=== PATIENT | female | born 1985 | race Caucasian/White ===

== ENCOUNTER 2016-06-03 08:00 | Inpatient (IN) | payer OTHER ==
[~2016-06-03] VITALS: Ht 162.6 cm; Wt 81.6 kg
[~2016-06-03 08:00] MED LIST: OXYC1SOL5 PO; Z.0.NO CURRENT MEDS
[2016-08-04] VITALS (8 sets, daily range): BP systolic 90–122; BP diastolic 51–67; PULSE 67–85; RESP 17–18; TEMP 97.8–98.7; O2SAT 97
[2016-08-04 06:28] LABS: AUTOMATED NEUTROPHIL # 7.1 TH/MM3 (1.8-7.7); BASOPHIL % 0.4 % (0.0-2.0); EOSINOPHIL # 0.2 TH/MM3 (0-0.4); EOSINOPHIL % 1.7 % (0.0-4.0); HEMATOCRIT 35.5 % (35.0-46.0); HEMO FLAGS DIFF FINAL; LYMPH % 22.6 % (9.0-44.0); LYMPHOCYTE # 2.3 TH/MM3 (1.0-4.8); MEAN CELL VOLUME 85.6 FL (80.0-100.0); MEAN CORPUSCULAR HEMOGLOBIN 28.5 PG (27.0-34.0); MEAN CORPUSCULAR HGB CONC 33.3 % (32.0-36.0); MONO % 7.5 % (0.0-8.0); NEUT % 67.8 % (16.0-70.0); PLATELET COUNT 200 TH/MM3 (150-450); RED BLOOD COUNT 4.15 MIL/MM3 (4.00-5.30); RED CELL DISTRIBUTION WIDTH 13.2 % (11.6-17.2); WHITE BLOOD COUNT 10.4 TH/MM3 (4.0-11.0)
[2016-08-04 06:30] LABS: BACTERIA, URINE RARE /hpf; BLOOD, URINE NEG (NEG); COMMENT (UR) CULT NOT INDICATED; CULTURE IF INDICATED CULT NOT INDICATED; GLUCOSE,URINE NEG (NEG); KETONE, URINE NEG (NEG); MUCUS URINE FEW /lpf (OCC); NITRITE,URINE NEG (NEG); SQUAMOUS EPITHELIAL CELL URINE 9 /hpf (0-5); URINE COLOR YELLOW (YELLW/STRAW)
[2016-08-04] MEDS ORDERED: PREN29TA PO (06:33)
[2016-08-04] MEDS ORDERED: LACTATED RINGER'S 1000 ML IV ONE (06:45)
[2016-08-04] MEDS ORDERED: CITRIC ACID-SODIUM CITRATE LIQ 30 ML UDC PO SCH (06:45)
[2016-08-04] MEDS ORDERED: ceFAZolin 2 GM PREMIX 50 ML IV SCH (06:45)
[2016-08-04] MEDS ORDERED: LACTATED RINGER'S 1000 ML IV SCH (06:45)
[2016-08-04] MEDS ORDERED: DICLOFENAC SODIUM 37.5 MG/ML VIAL IV PUSH ONE (07:23)
[2016-08-04] MEDS ORDERED: MORPHINE SULFATE PF 5 MG/10 ML VIAL ONE (07:23)
[2016-08-04] MEDS ORDERED: OXYTOCIN 10 UNIT/ML AMP ONE (07:24)
[2016-08-04] MEDS ORDERED: ONDANSETRON HCL 4 MG/2 ML VIAL ONE (07:24)
[2016-08-04] MEDS ORDERED: EPIDURAL-DIPHENHYDRAMINE HCL 50 MG/ML VIAL IV PUSH PRN (07:35)
[2016-08-04] MEDS ORDERED: EPIDURAL-DO NOT ADMINISTER ANTICOAGULANTS PRN (07:35)
[2016-08-04] MEDS ORDERED: EPIDURAL-NALOXONE HCL 0.4 MG/ML AMP IV PRN (07:35)
[2016-08-04] MEDS ORDERED: EPIDURAL-DIPHENHYDRAMINE HCL 50 MG CAP PO PRN (07:35)
[2016-08-04] MEDS ORDERED: EPIDURAL-NO SYSTEMIC NARCOTICS PRN (07:35)
[2016-08-04] MEDS ORDERED: ONDANSETRON HCL 4 MG/2 ML VIAL IV PUSH PRN (08:30)
[2016-08-04] MEDS ORDERED: SIMETHICONE 80 MG CHEWABLE TAB PO PRN (08:30)
[2016-08-04] MEDS ORDERED: oxyCODONE/ACETAMINOPHEN 5 MG/325 MG TAB PO PRN (08:30)
[2016-08-04] MEDS ORDERED: OXYTOCIN 30 UNITS-500ML PREMIX 500 ML IV ONE (08:30)
[2016-08-04] MEDS ORDERED: ACETAMINOPHEN 1000 MG/100 ML VIAL IV ONE ×2 (08:30→09:07)
[2016-08-04] MEDS ORDERED: SODIUM CHLORIDE 0.9% FLUSH 10 ML FLUSH IV FLUSH PRN (08:30)
[2016-08-04] MEDS ORDERED: ZOLPIDEM TARTRATE 5 MG TAB PO PRN (08:30)
[2016-08-04] MEDS ORDERED: LACTATED RINGER'S 1000 ML INJ 1,000 ML IV ONE (09:03)
[2016-08-04] MEDS ORDERED: PHENYLEPHRINE HCL 10 MG/ML VIAL IV ONE (09:03)
[2016-08-04] MEDS ORDERED: OXYTOCIN 30 UNITS-500ML PREMIX 500 ML ONE (09:07)
[2016-08-04] MEDS ORDERED: diphenhydrAMINE HCL 50 MG/ML VIAL ONE (09:14)
[2016-08-04] MEDS: SODIUM CHLORIDE 0.9% FLUSH 10 ML FLUSH IV FLUSH SCH (10:43)
[2016-08-04] MEDS ORDERED: DICLOFENAC SODIUM 37.5 MG/ML VIAL IV PUSH SCH ×2 (11:00→15:00)
[2016-08-04] MEDS ORDERED: LACTATED RINGER'S 1000 ML INJ 1,000 ML IV SCH (13:20)
[2016-08-04] MEDS ORDERED: OXYTOCIN 30 UNITS-500ML PREMIX 500 ML IV PRN (18:30)
[2016-08-04] MEDS: oxyCODONE/ACETAMINOPHEN 5 MG/325 MG TAB PO PRN ×2 (19:51→23:06)
[2016-08-04] MEDS: IBUPROFEN 600 MG TAB PO PRN (23:06)
[2016-08-05 01:00] VITALS: BP 107/61; PULSE 76; RESP 18; TEMP 98
[2016-08-05 04:00] VITALS: RESP 18
[2016-08-05 06:08] LABS: AUTOMATED NEUTROPHIL # 7.6 TH/MM3 (1.8-7.7); BASOPHIL % 0.3 % (0.0-2.0); EOSINOPHIL # 0.2 TH/MM3 (0-0.4); EOSINOPHIL % 1.8 % (0.0-4.0); HEMATOCRIT 29.6 % (35.0-46.0); HEMO FLAGS DIFF FINAL; LYMPHOCYTE # 2.1 TH/MM3 (1.0-4.8); MEAN CELL VOLUME 86.6 FL (80.0-100.0); MEAN CORPUSCULAR HGB CONC 33.5 % (32.0-36.0); MONO % 6.5 % (0.0-8.0); NEUT % 71.4 % (16.0-70.0); PLATELET COUNT 164 TH/MM3 (150-450); RED BLOOD COUNT 3.42 MIL/MM3 (4.00-5.30); RED CELL DISTRIBUTION WIDTH 13.4 % (11.6-17.2); WHITE BLOOD COUNT 10.7 TH/MM3 (4.0-11.0)
--- NOTE | 2016-08-05 07:43 | HHI.OB ---
Subjective Post Operative Day: 1 Remarks Doing well, Baby is good Pain is well controlled. Objective Vitals/I&O Vital Signs Date Time Temp Pulse Resp B/P Pulse Ox O2 Delivery O2 Flow Rate FiO2 08/05/16 04:00 18 08/05/16 01:00 107/61 08/05/16 01:00 98.0 76 18 08/04/16 23:00 18 08/04/16 20:20 18 08/04/16 19:15 98.7 17 97 08/04/16 19:15 76 107/61 08/04/16 15:30 98.3 67 18 08/04/16 15:30 90/51 08/04/16 11:00 97.8 101/56 08/04/16 11:00 18 08/04/16 11:00 69 Result Diagram: 08/05/16 0537 Objective Remarks GENERAL: Well-nourished, well-developed patient. CARDIOVASCULAR: Regular rate and rhythm without murmurs, gallops, or rubs. RESPIRATORY: Breath sounds equal bilaterally. No accessory muscle use. ABDOMEN/GI: Abdomen soft, non-tender, bowel sounds present. Incision: Clean, dry and intact. Fundus: Firm, non-tender at umbilicus. GENITOURINARY: Light to moderate bleeding. EXTREMITIES: No cyanosis or edema, non-tender, without signs of DVT. Medications and IVs Current Medications Medications (Trade) Dose Ordered Sig/Arya Route Start Time Stop Time Status Last Admin (Lr 1000 ml Inj) 1,000 ml @ 100 mls/hr Q10H IV 08/04/16 13:20 08/05/16 09:19 08/04/16 15:34 (NS Flush) 2 ml BID IV FLUSH 08/04/16 09:00 (NS Flush) 2 ml UNSCH PRN IV FLUSH 08/04/16 08:30 (Mylicon Chew) 80 mg QID PRN PO 08/04/16 08:30 (Motrin) 600 mg Q6H PRN PO 08/04/16 08:30 08/04/16 23:06 (Percocet 5-325 Mg) 1 tab Q4H PRN PO 08/04/16 08:30 08/04/16 23:06 (Percocet 5-325 Mg) 2 tab Q4H PRN PO 08/04/16 08:30 (Aarti-Colace) 2 tab Q12H PRN PO 08/04/16 08:30 (Ambien) 5 mg HS PRN PO 08/04/16 08:30 (M-M-R Ii Inj) 0.5 ml ONCE ONCE SQ 08/05/16 16:00 08/05/16 16:01 (Boostrix Inj) 0.5 ml ONCE ONCE IM 08/05/16 16:00 08/05/16 16:01 (Zofran Inj) 4 mg Q6H PRN IV PUSH 08/04/16 08:30 Assessment/Plan Assessment and Plan POD #1 Doing well Routine care. Randy Paz MD August 05, 2016 07:43
[2016-08-05 08:00] VITALS: BP 107/60; PULSE 74; RESP 19; TEMP 97.9
[2016-08-05] MEDS ORDERED: IBUP-232 PO (08:11)
[2016-08-05] MEDS ORDERED: OXYC1TAB63 PO (08:11)
[2016-08-05] MEDS: DOCUSATE SODIUM 50 MG/SENNA 8.6 MG TAB PO PRN ×2 (08:23→19:40)
[2016-08-05] MEDS: oxyCODONE/ACETAMINOPHEN 5 MG/325 MG TAB PO PRN ×4 (08:25→23:07)
[2016-08-05] MEDS: IBUPROFEN 600 MG TAB PO PRN ×2 (08:25→19:40)
[2016-08-05 09:00] VITALS: BP 107/60; PULSE 74; RESP 19; TEMP 97.9
--- NOTE | 2016-08-05 10:16 | HHI.DCPOC ---
Discharge Care Plan Diagnosis: (1) S/P repeat low transverse Your Health Problems Are: delivery Report Symptoms to Your Doctor -Temperate above 100.5 degrees -Redness, of incision or excessive or foul smelling drainage -Unusual pain or calf pain -Increased vaginal bleeding -Painful or difficulty urinating -Feelings of extreme sadness or anxiety after 2 weeks Goals to Promote Your Health * To prevent worsening of your condition and complications * To maintain your health at the optimal level Directions to Meet Your Goals Take your medications as prescribed Follow your dietary instruction Follow activity as directed Ensure plenty of rest for recovery Drink fluids for hydration Keep your appointments as scheduled Take your immunizations and boosters as scheduled If your symptoms worsen call your PCP, if no PCP go to Urgent Care Center or Emergency Room Smoking is Dangerous to Your Health. Avoid second hand smoke Call the 24-hour crisis hotline for domestic abuse at Claudia Gonzales August 05, 2016 10:16
--- NOTE | 2016-08-05 11:19 | MP ---
cc: PRASHANTH MARIE MD DATE OF SURGERY: 08/04/2016 PREOPERATIVE DIAGNOSIS Intrauterine at term, previous section, desires repeat section. POSTOPERATIVE DIAGNOSIS Intrauterine at term, previous section, desires repeat section. PROCEDURE Repeat lower segment transverse section via Pfannenstiel skin incision. SURGEON Dr. Marie ANESTHESIA Spinal. FLUIDS 2500 cc crystalloid. ESTIMATED BLOOD LOSS 600 cc. URINE OUTPUT 200 cc clear yellow at the end of the procedure. FINDINGS A live male was delivered vertex presentation, Apgars 8 at one minute and 9 at five minutes. weight was 7 pounds 9 ounces. DETAILS OF PROCEDURE The patient was taken to the operating room where spinal anesthesia was found to be adequate. She was then prepped and draped in the normal sterile fashion in the dorsal supine position with a leftward tilt. A Pfannenstiel skin incision was made with a scalpel and carried down to the underlying layer of fascia. The fascia was nicked in the midline and the incision was extended laterally with curved Lee scissors. Attention was turned to the inferior aspect of the incision which was grasped with Fausto clamps, elevated and the rectus muscles dissected off sharply. Attention was turned to the superior aspect of the incision which was grasped with Fausto clamps, elevated and the rectus muscles dissected off sharply. The rectus muscles were in the midline. The peritoneum was identified, grasped with Lelia clamps, elevated and entered sharply with Metzenbaum scissors. This incision was extended superiorly and inferiorly with good visualization of the bladder. The bladder blade was inserted. The vesicouterine peritoneum was identified, grasped with pickups and entered sharply with Metzenbaum scissors. This incision was extended laterally and the bladder flap created sharply. The lower uterine segment was incised in a transverse fashion. Clear amniotic fluid was noted. The incision was extended laterally with bandage scissors. The vertex was delivered. The oral and nasopharynx were bulb suctioned with a syringe. The shoulders were delivered atraumatically. A nuchal cord x1 was noted and reduced. The cord was clamped x2 and cut. The was handed off to the awaiting nurse. The placenta was delivered manually. The uterus was cleared of all clots and debris. The uterine incision was repaired in two layers with #1 Vicryl. Hemostasis was assured. The gutters were cleared of all clots and debris. The fascia was closed in a running fashion with 0 Vicryl. The skin was closed with quentin. A pressure dressing was applied. The sponge, lap, needle and instrument counts were correct x3. The patient was transferred to the recovery room in stable condition. MD SAVANNAH Vyas/HAILY /8:26 AM /11:03 AM
[2016-08-05] MEDS ORDERED: MEASLES, MUMPS, RUBELLA VACCINE 0.5 ML VIAL SQ ONE (16:00)
[2016-08-05] MEDS ORDERED: DIPHTH/TETANUS/ACEL PERTUSSIS (BOOSTER) 0.5 ML VIAL/PFS IM ONE (16:00)
[2016-08-05 19:40] VITALS: BP 103/64; PULSE 74; RESP 18; TEMP 98.7
[2016-08-05] MEDS: SODIUM CHLORIDE 0.9% FLUSH 10 ML FLUSH IV FLUSH SCH (21:00)
[2016-08-06] MEDS: oxyCODONE/ACETAMINOPHEN 5 MG/325 MG TAB PO PRN ×3 (04:46→16:45)
[2016-08-06] MEDS: IBUPROFEN 600 MG TAB PO PRN ×3 (04:46→16:45)
[2016-08-06 07:30] VITALS: BP 107/50; PULSE 66; RESP 16; TEMP 98
--- NOTE | 2016-08-06 11:46 | HHI.OB ---
Subjective Post Operative Day: 2 Remarks Doing well, Baby is good Pain is well controlled. Objective Vitals/I&O Vital Signs Date Time Temp Pulse Resp B/P Pulse Ox O2 Delivery O2 Flow Rate FiO2 08/06/16 07:30 98.0 66 16 107/50 08/05/16 19:40 98.7 74 18 103/64 Result Diagram: 08/05/16 0537 Objective Remarks GENERAL: Well-nourished, well-developed patient. CARDIOVASCULAR: Regular rate and rhythm without murmurs, gallops, or rubs. RESPIRATORY: Breath sounds equal bilaterally. No accessory muscle use. ABDOMEN/GI: Abdomen soft, non-tender, bowel sounds present. Incision: Clean, dry and intact. Fundus: Firm, non-tender at umbilicus. GENITOURINARY: Light to moderate bleeding. EXTREMITIES: No cyanosis or edema, non-tender, without signs of DVT. Medications and IVs Current Medications Medications (Trade) Dose Ordered Sig/Arya Route Start Time Stop Time Status Last Admin (NS Flush) 2 ml BID IV FLUSH 08/04/16 09:00 (NS Flush) 2 ml UNSCH PRN IV FLUSH 08/04/16 08:30 (Mylicon Chew) 80 mg QID PRN PO 08/04/16 08:30 (Motrin) 600 mg Q6H PRN PO 08/04/16 08:30 08/06/16 11:11 (Percocet 5-325 Mg) 1 tab Q4H PRN PO 08/04/16 08:30 08/06/16 11:11 (Percocet 5-325 Mg) 2 tab Q4H PRN PO 08/04/16 08:30 (Aarti-Colace) 2 tab Q12H PRN PO 08/04/16 08:30 08/05/16 19:40 (Ambien) 5 mg HS PRN PO 08/04/16 08:30 (Zofran Inj) 4 mg Q6H PRN IV PUSH 08/04/16 08:30 Assessment/Plan Assessment and Plan POD #2 Doing well Remove quentin and steristrip. Routine care. Randy Paz MD August 06, 2016 11:46
== END 2016-08-06 18:35 | disposition home or self-care (01) | DRG 766 ==
LOC: H2EB 08-04 05:44 → H1EA 08-04 09:59
PROVIDERS: ADMIT Obstetrics & Gynecology; ATTEND Obstetrics & Gynecology
PROC: 10D00Z1 Extraction of Products of Conception, Low, Open Approach (ICD-10-PCS; principal; 2016-08-04)
DX: O34.211 Maternal care for low transverse scar from previous cesarean delivery (principal); Z37.0 Single live birth; Z3A.39 39 weeks gestation of pregnancy
CPT/HCPCS: 59025; 81001; 85025; 86850; 86900; 86901; J0131; J0690; J1130; J1200; J2274; J2370; J2405; J2590; J7120